=== PATIENT | female | born 1980 | race Caucasian/White ===

== ENCOUNTER 2017-11-10 09:15 | Observation (INO) | payer OTHER, SELFPAY ==
[2017-11-10] VITALS (7 sets, daily range): BP systolic 111–132; BP diastolic 65–81; PULSE 62–65; RESP 12–21; TEMP 36.4–36.8; O2SAT 96–100; BMI 40.2
--- NOTE | 2017-11-10 07:32 | PC.NURSE ---
recieved from [place] from [place], pt seen 530am, c/o right upper abdominal pain, radiating back with nausea, no fever or vomiting. glucose 83. bm last night treated with 30mg toradol im, 4mg zofran sl, fentanyl 50mcg [place]. spouse driving pt to er on [address]. pt with family hx lupus, (mother and sister) pt has been having joint pain and rash on face. pt no meds , no allergies. 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
--- NOTE | 2017-11-10 10:18 | ED.ABDPAIN ---
HPI - Abdominal Pain General Chief Complaint: Abdominal Pain Stated Complaint: stomach pain for 1 week Time Seen by Provider: 11/10/17 09:45 Source: patient Mode of arrival: ambulatory Limitations: no limitations History of Present Illness HPI narrative: The patient is a 37-year-old female who presents with right upper quadrant pain for the last 5 days. Initially was quite bad 5 days ago he said that it got little bit better but never went away. And radiates to her back. It is worse every time she eats she feels nauseous at times but no vomiting no fever. complaint: abdominal pain Onset (ago): day(s) (5) Pain Consistency: constant Relieving factors: nothing Exacerbating factors: eating Related Data Home Medications Medication Instructions Recorded Confirmed Papaya Enzyme 1 dose PO DIRECTED 11/10/17 11/10/17 Allergies Allergy/AdvReac Type Severity Reaction Status Date / Time No Known Drug Allergies Allergy Verified 11/10/17 09:41 Review of Systems Review of Systems GENERAL: Denies chills, fatigue, malaise, fever, sweats, travel HEENT: Denies sinus pain, ear pain, sore throat, difficulty swallowing, neck pain RESPIRATORY: Denies dyspnea, cough, wheezing, hemoptysis, sputum. CARDIOVASCULAR: Denies chest pain, palpitations, orthopnea, edema GASTROINTESTINAL: See HPI : Denies dysuria, frequency, incontinence, hematuria, urinary retention, flank pain. MUSCULOSKELETAL: Denies weakness, joint pain, or bony pain SKIN: No rash, no erythema, no pruritus NEUROLOGIC: Denies weakness, dizziness, headache, numbness, change in speech, confusion PSYCHIATRIC: No concerning psychosocial issues. 12 point review of systems is negative except for those stated above and HPI [facility] Surgical History Status post arthroscopy Status post delivery Status post delivery Status post delivery Status post delivery Status post dilation and curettage Status post tubal ligation Family History: Reviewed 11/10/17 by Ansley Gayle MD Social History household members: spouse and children Smoking Status: Never smoker alcohol intake: never substance use type: does not use Exam Initial Vital Signs Initial Vital Signs: Vital Signs Temperature 97.6 F 11/10/17 09:35 Pulse Rate 65 11/10/17 09:35 Respiratory Rate 18 11/10/17 09:35 Blood Pressure 125/79 H 11/10/17 09:35 Pulse Oximetry 100 11/10/17 09:35 GENERAL: Well-appearing, well-nourished and in no acute distress. HEENT: Head atraumatic,EOMI, pupils reactive, face symmetric CARDIOVASCULAR: Regular rate and rhythm without murmurs, rubs or gallops. RESPIRATORY: Breath sounds equal bilaterally, no wheezes rales or rhonchi. ABDOMEN: Soft, obese, positive Ness sign, tender right upper quadrant no guarding no rebound s EXTREMITIES: Normal range of motion, no clubbing or edema. Neurovascularly intact NEUROLOGICAL: Alert and oriented x4.Normal gait and speech. SKIN: Warm, dry, no laceration, no petechiae, no rashes or lesions. Course Orders Ordered: ED Orders 11/10/17 10:25 US abdomen complete Stat 11/10/17 10:33 Complete Blood Count AUTO DIFF Stat Comprehensive Metabolic Panel Stat Lipase Stat 11/10/17 16:01 Education, smoking cessation ONGOING Hydromorphone HCl (Dilaudid) 1 mg IV Q1H PRN PRN Reason: Pain, Moderate (4-6) Last Admin: 11/10/17 18:36 Dose: 1 mg Dextrose/Sodium Chloride (Dextrose 5%-0.45% Ns) 1,000 mls @ 100 mls/hr IV CONT LUIZ Last Admin: 11/10/17 16:16 Dose: 100 mls/hr Cefotetan Disodium/Dextrose (Cefotan) 2 gm in 50 mls @ 100 mls/hr IV Q12H [facility] Last Admin: 11/10/17 17:02 Dose: 100 mls/hr Ondansetron HCl (Zofran) 4 mg IV Q6HR [facility] Last Admin: 11/10/17 18:23 Dose: Not Given Discontinued Medications Sodium Chloride (Normal Saline 0.9%) 1,000 mls @ 150 mls/hr IV CONT LUIZ Last Admin: 11/10/17 10:55 Dose: 150 mls/hr Reevaluation(s) Reevaluation #1: Dr. Gayle in the ED to see and evaluate patient. Patient will be placed in observation with surgery tomorrow Dr. Gayle home on to write orders. Vital Signs - 8 hr 11/10/17 11:58 11/10/17 13:34 11/10/17 16:00 Temperature 98.2 F Pulse Rate 65 62 62 Respiratory Rate 21 12 16 Blood Pressure 132/81 H Blood Pressure [Right Arm] 112/69 111/65 Pulse Oximetry 100 100 97 11/10/17 17:00 Temperature Pulse Rate Respiratory Rate Blood Pressure Blood Pressure [Right Arm] Pulse Oximetry 97 MDM - Abdominal Pain Lab Data Result diagrams: 11/10/17 10:33 11/10/17 10:33 Lab Results 11/10/17 11/10/17 Range/Units 10:33 10:33 WBC 4.9 (4.5-11.0) X10^3/uL RBC 4.52 (4.0-5.2) X10^6/uL Hgb 12.1 (12.0-16.0) g/dL Hct 36.0 (36-46) % MCV 79.7 L (80-100) fL MCH 26.8 (26-34) PG MCHC 33.6 (30-36) % RDW 14.3 (11.6-14.8) % Plt Count 246 (150-400) X10^3/uL Neut % (Auto) 57.8 (50-75) % Lymph % (Auto) 33.8 (25-40) % [place] % (Auto) 6.3 (3-14) % Eos % (Auto) 1.5 L (2-4) % Baso % (Auto) 0.6 (0-2) % Neut # (Auto) 2800 L (4531-0270) /uL Sodium 140 (137-145) mmol/L Potassium 4.2 (3.4-5.1) mmol/L Chloride 103 (98-107) mmol/L Carbon Dioxide 28 (22-32) mmol/L BUN 16 (7-17) mg/dL Creatinine 0.70 (0.52-1.04) mg/dL Estimated GFR > 60.0 (>60) mL/min BUN/Creatinine Ratio 22.9 H (6-22) Glucose 85 (70-100) mg/dL Calcium 9.0 (8.4-10.2) mg/dL Total Bilirubin 0.5 (0.2-1.3) mg/dL AST 28 (14-36) IU/L ALT 30 (9-52) IU/L Alkaline Phosphatase 76 (38-126) U/L Total Protein 7.0 (6.3-8.2) g/dL Albumin 4.0 (3.5-5.0) g/dL Globulin 3.0 (1.7-4.1) g/dL Albumin/Globulin Ratio 1.3 (1.0-2.8) Lipase 57 (23-300) U/L Point of care testing: Point of Care Testing Test Results Negative Urine Dip Bedside Urine Glucose Negative Bedside Urine Bilirubin - Negative Bedside Urine Ketone - Negative Urine Specific [place] 1.025 Bedside Urine Occult Blood - Negative Bedside Urine pH 6.0 Bedside Urine Protein +/- 15 Bedside Urine Urobilinogen +/- 1mg Bedside Urine Nitrite - Negative Bedside Urine Leukocytes - Negative Esterase Imaging Data US - abdomen: Radiologist's impression: PROCEDURE: US ABDOMEN COMPLETE INDICATIONS: RIGHT UPPER QUADRANT PAIN TECHNIQUE: Real-time scanning was performed of the abdominal and retroperitoneal organs, with image documentation. COMPARISON: None. FINDINGS: Liver: Liver is normal in size and homogeneous in echotexture. Gallbladder: The gallbladder contains sludge and stones, gallbladder wall is not abnormally thickened and there is no sign of abnormal pericholecystic fluid or tenderness. A 1.4 cm none appears impacted at the gallbladder neck. Biliary ducts: Intrahepatic bile ducts are non-dilated. Extrahepatic bile duct caliber measures 6.1 mm. Normal is 6-7 mm or less in diameter, or 10 mm or less post-cholecystectomy. Pancreas: Visualized portions of the pancreas are sonographically normal. Spleen: Spleen is normal in size and homogeneous in echotexture. Kidneys: Kidneys are normal in size and echotexture. Right kidney measures 10.5 cm long; left kidney measures 11.8 cm long. No hydronephrosis or nephrolithiasis. No solid masses. Aorta: Visualized aorta is normal in caliber at less than 3 cm. Iliacs: Proximal common iliac arteries are normal in caliber at less than 2.5 cm. IVC: Intrahepatic inferior vena cava is patent. Miscellaneous: No free abdominal fluid. IMPRESSION: Gallstone impacted at the gallbladder neck measuring 1.4 cm. Currently there also is sludge within the gallbladder lumen but no biliary distention or gallbladder wall thickening is associated. Dictated by: Ryan Sainz M.D. on 11/10/2017 at 11:45 Discharge Plan Departure Patient Disposition: Admitted as Observation Clinical Impression: Cholelithiasis Discharge Date/Time: 11/10/17 16:06 Interventions: ED Discharge Assessment Last Done: 11/10/17 15:46 Admit Date/Time: 11/10/17 15:40 Admit Provider: Ansley Gayle
--- NOTE | 2017-11-10 10:25 | DI.US.S_ITS ---
PROCEDURE: US ABDOMEN COMPLETE INDICATIONS: RIGHT UPPER QUADRANT PAIN TECHNIQUE: Real-time scanning was performed of the abdominal and retroperitoneal organs, with image documentation. COMPARISON: None. FINDINGS: Liver: Liver is normal in size and homogeneous in echotexture. Gallbladder: The gallbladder contains sludge and stones, gallbladder wall is not abnormally thickened and there is no sign of abnormal pericholecystic fluid or tenderness. A 1.4 cm none appears impacted at the gallbladder neck. Biliary ducts: Intrahepatic bile ducts are non-dilated. Extrahepatic bile duct caliber measures 6.1 mm. Normal is 6-7 mm or less in diameter, or 10 mm or less post-cholecystectomy. Pancreas: Visualized portions of the pancreas are sonographically normal. Spleen: Spleen is normal in size and homogeneous in echotexture. Kidneys: Kidneys are normal in size and echotexture. Right kidney measures 10.5 cm long; left kidney measures 11.8 cm long. No hydronephrosis or nephrolithiasis. No solid masses. Aorta: Visualized aorta is normal in caliber at less than 3 cm. Iliacs: Proximal common iliac arteries are normal in caliber at less than 2.5 cm. IVC: Intrahepatic inferior vena cava is patent. Miscellaneous: No free abdominal fluid. IMPRESSION: Gallstone impacted at the gallbladder neck measuring 1.4 cm. Currently there also is sludge within the gallbladder lumen but no biliary distention or gallbladder wall thickening is associated. Dictated by: Ryan Sainz M.D. on 11/10/2017 at 11:45 Approved by: Ryan Sainz M.D. on 11/10/2017 at 11:47
--- NOTE | 2017-11-10 10:44 | PC.NURSE ---
pt reports, right upper abdominal pain, worsening pain today, radiating to the back, with nausea, denies vomiting and diarrhea, sxs for 5 days, worsen when she lays down and after eating. last solid meal last night at 8pm, [place] denies fever. abd soft tender with palpation right upper, +bowel tones, skin warm dry pink, cap refill <2
[2017-11-10 10:48] LABS: Add Manual Diff / Slide Review NO; Basophils Percent Auto 0.6 % (0-2); Eosinophils Percent Auto 1.5 % (2-4); Hemoglobin 12.1 g/dL (12.0-16.0); Lymphocytes Percent Auto 33.8 % (25-40); Mean Corpuscular HGB Conc 33.6 % (30-36); Mean Corpuscular Hemoglobin 26.8 PG (26-34); Mean Corpuscular Volume 79.7 fL (80-100); Monocytes Percent Auto 6.3 % (3-14); Neutrophils Absolute Auto 2800 /uL (3000-5900); Neutrophils Percent Auto 57.8 % (50-75); Platelet Count 246 X10^3/uL (150-400); Red Blood Cell Count 4.52 X10^6/uL (4.0-5.2); Red Cell Distribution Width 14.3 % (11.6-14.8); White Blood Cell Count 4.9 X10^3/uL (4.5-11.0)
[2017-11-10] MEDS: SODIUM CHLORIDE 0.9% 1,000 ML 150 ML IV (10:55)
[2017-11-10 10:58] LABS: Alanine Aminotransferase 30 IU/L (9-52); Albumin Globulin Ratio 1.3 (1.0-2.8); Alkaline Phosphatase 76 U/L (38-126); Aspartate Aminotransferase 28 IU/L (14-36); BUN Creatinine Ratio 22.9 (6-22); Bilirubin Total 0.5 mg/dL (0.2-1.3); Blood Urea Nitrogen 16 mg/dL (7-17); Carbon Dioxide 28 mmol/L (22-32); Chloride 103 mmol/L (98-107); Estimated Glomerular Filt Rate > 60.0 mL/min (>60); Glucose 85 mg/dL (70-100); HEMOLYSIS < 15 (0-50); Lipase 57 U/L (23-300); Potassium 4.2 mmol/L (3.4-5.1); Sodium 140 mmol/L (137-145)
--- NOTE | 2017-11-10 11:51 | PC.NURSE ---
ultra sound done at
--- NOTE | 2017-11-10 15:07 | PM.HP.1 ---
History of Present Illness Date Patient Seen: 11/10/17 Time Patient Seen: 15:07 Chief complaint: stomach pain for 1 week Narrative: Pleasant 37-year-old lady who has had intermittent but worsening right upper quadrant pain for the last 5 days. She reports the pain became acutely worse about 2:00 a.m. and she has not slept since that time. This prompted a trip to our emergency room from her home on [facility]. In the emergency room she was seen by Dr. Rodriguez and found to have a gallstone impacted in the neck of the gallbladder. I have been consulted for definitive management. Patient History Surgical History Status post arthroscopy Status post delivery Status post delivery Status post delivery Status post delivery Status post dilation and curettage Status post tubal ligation Family & Social History Family History: Reviewed 11/10/17 by Ansley Gayle MD Safety & Behavioral: Feels Safe in Current Yes Environment Been Physically Hurt or No Threatened By a Person Tobacco & Substance use: Smoking Status Never smoker alcohol intake never alcohol intake frequency 0-2 drinks per day Substance Use Type does not use Meds Home Medications Medication Instructions Recorded Confirmed Type Papaya Enzyme 1 dose PO DIRECTED 11/10/17 11/10/17 History Allergies Allergy/AdvReac Type Severity Reaction Status Date / Time No Known Drug Allergies Allergy Verified 11/10/17 09:41 Review of Systems Review of Systems All systems reviewed & are unremarkable except as noted in HPI and below Exam Vital Signs (past 8 hours): - 11/10/17 09:35 11/10/17 11:58 11/10/17 13:34 Temperature 97.6 F Pulse Rate 65 65 62 Respiratory Rate 18 21 12 Blood Pressure 125/79 H Blood Pressure [Right Arm] 112/69 111/65 Pulse Oximetry 100 100 100 Oxygen Delivery Method Room Air Narrative Exam Narrative: Pleasant but tired appearing lady in no obvious physical distress HEENT: Normocephalic and atraumatic, pupils equal round reactive to light accommodation with anicteric sclera. Lungs: Clear to auscultation bilaterally Heart: Regular rate and rhythm Abdomen: Soft, rotund, active bowel sounds. Healed Pfannenstiel incision consistent with previous history of multiple C-sections. No upper abdominal incisions. No umbilical or inguinal hernias appreciated. No rebound or guarding and no peritoneal signs. Extremities: Warm and well perfused without edema Objective Labs Result Diagrams: 11/10/17 10:33 11/10/17 10:33 Labs: Laboratory Results - last 24 hr 11/10/17 11/10/17 10:33 10:33 WBC 4.9 RBC 4.52 Hgb 12.1 Hct 36.0 MCV 79.7 L MCH 26.8 MCHC 33.6 RDW 14.3 Plt Count 246 Neut % (Auto) 57.8 Lymph % (Auto) 33.8 [place] % (Auto) 6.3 Eos % (Auto) 1.5 L Baso % (Auto) 0.6 Neut # (Auto) 2800 L Sodium 140 Potassium 4.2 Chloride 103 Carbon Dioxide 28 BUN 16 Creatinine 0.70 Estimated GFR > 60.0 BUN/Creatinine Ratio 22.9 H Glucose 85 Calcium 9.0 Total Bilirubin 0.5 AST 28 ALT 30 Alkaline Phosphatase 76 Total Protein 7.0 Albumin 4.0 Globulin 3.0 Albumin/Globulin Ratio 1.[address] [place] [address] Ultrasound Report Signed Patient: Gricel Brito MR#: [id number] : 1980 Acct:[id number] Age/Sex: 37 / F Date of Service: 11/10/17 Loc: ED Accession Number: [id number] Procedure: US abdomen complete Ordering Provider: Natty Rodriguez D.O. PROCEDURE: US ABDOMEN COMPLETE INDICATIONS: RIGHT UPPER QUADRANT PAIN TECHNIQUE: Real-time scanning was performed of the abdominal and retroperitoneal organs, with image documentation. COMPARISON: None. FINDINGS: Liver: Liver is normal in size and homogeneous in echotexture. Gallbladder: The gallbladder contains sludge and stones, gallbladder wall is not abnormally thickened and there is no sign of abnormal pericholecystic fluid or tenderness. A 1.4 cm none appears impacted at the gallbladder neck. Biliary ducts: Intrahepatic bile ducts are non-dilated. Extrahepatic bile duct caliber measures 6.1 mm. Normal is 6-7 mm or less in diameter, or 10 mm or less post-cholecystectomy. Pancreas: Visualized portions of the pancreas are sonographically normal. Spleen: Spleen is normal in size and homogeneous in echotexture. Kidneys: Kidneys are normal in size and echotexture. Right kidney measures 10.5 cm long; left kidney measures 11.8 cm long. No hydronephrosis or nephrolithiasis. No solid masses. Aorta: Visualized aorta is normal in caliber at less than 3 cm. Iliacs: Proximal common iliac arteries are normal in caliber at less than 2.5 cm. IVC: Intrahepatic inferior vena cava is patent. Miscellaneous: No free abdominal fluid. IMPRESSION: Gallstone impacted at the gallbladder neck measuring 1.4 cm. Currently there also is sludge within the gallbladder lumen but no biliary distention or gallbladder wall thickening is associated. Dictated by: Ryan Sainz M.D. on 11/10/2017 at 11:45 Approved by: Ryan Sainz M.D. on 11/10/2017 at 11:47 Assessment & Plan Plan: Assessment/Plan Narrative: Very pleasant 37-year-old lady with acute biliary colic related to cholelithiasis and chronic cholecystitis. She will be admitted overnight here in the hospital with planned surgical intervention tomorrow morning at 10:45 a.m.. We discussed the risks and benefits of the procedure and after careful consideration, the patient expressed a desire to complete the procedure while here in the hospital.
--- NOTE | 2017-11-10 15:11 | P.HP_ITS ---
History of Present Illness Date Patient Seen: 11/10/17 Time Patient Seen: 15:07 Chief complaint: stomach pain for 1 week Narrative: Pleasant 37-year-old lady who has had intermittent but worsening right upper quadrant pain for the last 5 days. She reports the pain became acutely worse about 2:00 a.m. and she has not slept since that time. This prompted a trip to our emergency room from her home on [facility]. In the emergency room she was seen by Dr. Rodriguez and found to have a gallstone impacted in the neck of the gallbladder. I have been consulted for definitive management. Patient History Surgical History Status post arthroscopy Status post delivery Status post delivery Status post delivery Status post delivery Status post dilation and curettage Status post tubal ligation Family & Social History Family History: Reviewed 11/10/17 by Ansley Gayle MD Safety & Behavioral: Feels Safe in Current Yes Environment Been Physically Hurt or No Threatened By a Person Tobacco & Substance use: Smoking Status Never smoker alcohol intake never alcohol intake frequency 0-2 drinks per day Substance Use Type does not use Meds Home Medications Medication Instructions Recorded Confirmed Type Papaya Enzyme 1 dose PO DIRECTED 11/10/17 11/10/17 History Allergies Allergy/AdvReac Type Severity Reaction Status Date / Time No Known Drug Allergies Allergy Verified 11/10/17 09:41 Review of Systems Review of Systems All systems reviewed & are unremarkable except as noted in HPI and below Exam Vital Signs (past 8 hours): - 11/10/17 09:35 11/10/17 11:58 11/10/17 13:34 Temperature 97.6 F Pulse Rate 65 65 62 Respiratory Rate 18 21 12 Blood Pressure 125/79 H Blood Pressure [Right Arm] 112/69 111/65 Pulse Oximetry 100 100 100 Oxygen Delivery Method Room Air Narrative Exam Narrative: Pleasant but tired appearing lady in no obvious physical distress HEENT: Normocephalic and atraumatic, pupils equal round reactive to light accommodation with anicteric sclera. Lungs: Clear to auscultation bilaterally Heart: Regular rate and rhythm Abdomen: Soft, rotund, active bowel sounds. Healed Pfannenstiel incision consistent with previous history of multiple C-sections. No upper abdominal incisions. No umbilical or inguinal hernias appreciated. No rebound or guarding and no peritoneal signs. Extremities: Warm and well perfused without edema Objective Labs Result Diagrams: 11/10/17 10:33 11/10/17 10:33 Labs: Laboratory Results - last 24 hr 11/10/17 11/10/17 10:33 10:33 WBC 4.9 RBC 4.52 Hgb 12.1 Hct 36.0 MCV 79.7 L MCH 26.8 MCHC 33.6 RDW 14.3 Plt Count 246 Neut % (Auto) 57.8 Lymph % (Auto) 33.8 [place] % (Auto) 6.3 Eos % (Auto) 1.5 L Baso % (Auto) 0.6 Neut # (Auto) 2800 L Sodium 140 Potassium 4.2 Chloride 103 Carbon Dioxide 28 BUN 16 Creatinine 0.70 Estimated GFR > 60.0 BUN/Creatinine Ratio 22.9 H Glucose 85 Calcium 9.0 Total Bilirubin 0.5 AST 28 ALT 30 Alkaline Phosphatase 76 Total Protein 7.0 Albumin 4.0 Globulin 3.0 Albumin/Globulin Ratio 1.[address] [place] [address] Ultrasound Report Signed Patient: Gricel Brito MR#: [id number] : 1980 Acct:[id number] Age/Sex: 37 / F Date of Service: 11/10/17 Loc: ED Accession Number: [id number] Procedure: US abdomen complete Ordering Provider: Natty Rodriguez D.O. PROCEDURE: US ABDOMEN COMPLETE INDICATIONS: RIGHT UPPER QUADRANT PAIN TECHNIQUE: Real-time scanning was performed of the abdominal and retroperitoneal organs, with image documentation. COMPARISON: None. FINDINGS: Liver: Liver is normal in size and homogeneous in echotexture. Gallbladder: The gallbladder contains sludge and stones, gallbladder wall is not abnormally thickened and there is no sign of abnormal pericholecystic fluid or tenderness. A 1.4 cm none appears impacted at the gallbladder neck. Biliary ducts: Intrahepatic bile ducts are non-dilated. Extrahepatic bile duct caliber measures 6.1 mm. Normal is 6-7 mm or less in diameter, or 10 mm or less post-cholecystectomy. Pancreas: Visualized portions of the pancreas are sonographically normal. Spleen: Spleen is normal in size and homogeneous in echotexture. Kidneys: Kidneys are normal in size and echotexture. Right kidney measures 10.5 cm long; left kidney measures 11.8 cm long. No hydronephrosis or nephrolithiasis. No solid masses. Aorta: Visualized aorta is normal in caliber at less than 3 cm. Iliacs: Proximal common iliac arteries are normal in caliber at less than 2.5 cm. IVC: Intrahepatic inferior vena cava is patent. Miscellaneous: No free abdominal fluid. IMPRESSION: Gallstone impacted at the gallbladder neck measuring 1.4 cm. Currently there also is sludge within the gallbladder lumen but no biliary distention or gallbladder wall thickening is associated. Dictated by: Ryan Sainz M.D. on 11/10/2017 at 11:45 Approved by: Ryan Sainz M.D. on 11/10/2017 at 11:47 Assessment & Plan Plan: Assessment/Plan Narrative: Very pleasant 37-year-old lady with acute biliary colic related to cholelithiasis and chronic cholecystitis. She will be admitted overnight here in the hospital with planned surgical intervention tomorrow morning at 10:45 a.m.. We discussed the risks and benefits of the procedure and after careful consideration, the patient expressed a desire to complete the procedure while here in the hospital.
--- NOTE | 2017-11-10 15:47 | PC.NURSE ---
report given to mariah antunez to floor.
[2017-11-10] MEDS: DEXTROSE 5%-0.45% NS 1,000 ML 100 ML IV (16:16)
[2017-11-10] MEDS: CEFOTETAN 2 GM/50 ML PIGGYBACK IV (17:02)
[2017-11-10] MEDS: HYDROMORPHONE 0.5 MG INJ 1 MG IV (18:36)
[2017-11-10] MEDS: ONDANSETRON 4 MG/2 ML INJ IV ×2 (19:14→23:42)
[2017-11-10] MEDS: diphenhydrAMINE 50 MG/ML VIAL 25 MG IV (19:23)
--- NOTE | 2017-11-10 19:26 | PC.NURSE ---
Addendum entered by Jovon Lai R.N. 11/10/17 20:31: Call to Dr. Gayle for new orders for pain tx, also informed that patient did receive Toradol by the EMS team that cared for her prior to hospital arrival. New orders for IV Morphine and PO Tylenol, see JUL for details. Patient states her funny feeling has resided slightly but still feels nauseated and pain doesn't feel like it was resolved much. Explained new orders sugg. trying APAP per JUL orders but patient declined and wishes to rest instead. Original Note: Addendum entered by Jovon Lai R.N. 11/10/17 19:27: Patient reports itching post IV push of Dilaudid 1mg. Call placed to Dr. Gayle regarding reaction, VTO for Benedryl 25mg IV Q6HR PRN for itching. IV push given along w/ zofran as patient reports nausea post Pain hospitalist medical director. Patient now resting in bed w/ cool wash rag on forehead, denies any relief at this time, will cont. to reassess for relief. Original Note: Patient is A&O x3, pleasant adn coioperative w/ staff and is able to make needs known when nec. Katarina arrived to floor around 1615, w/ spouse in tow. Patient was transported via and was able to ambulated on own w/ out difficulty to chair. Patient denies any pain or n/v upon arrival to floor. VSS 97% on RA. IV fluids initated per JUL orders.
[2017-11-11] VITALS (25 sets, daily range): BP systolic 104–166; BP diastolic 59–104; PULSE 60–92; RESP 11–21; TEMP 36.2–37.4; O2SAT 94–100; BMI 43.7
--- NOTE | 2017-11-11 | PATH_ITS ---
[facility] Accession Number: [id number] . 01 Material submitted: . GALLBLADDER . 02 Diagnosis: Gallbladder, Laparoscopic Cholecystectomy: Chronic cholecystitis, cholesterolosis, and cholelithiasis. Small portion of benign subcapsular liver is attached. MRV/11/14/2017 . 02 Electronically signed: . Jannette Brand MD, Pathologist NPI- [id number] . 01 Gross description: . One specimen is received in formalin, labeled Daryl, Gricel and gallbladder, and consists of one gallbladder, 7 cm in length and 3 cm in diameter. The serosa is regalado-newby and focally hemorrhagic. There are multiple defects ranging up to 0.5 cm. The cystic duct is received ligated with a metal surgical clip. The duct is patent and 0.2 cm in diameter. The lumen is remarkable for green-yellow viscous bile and three yellow-regalado bosselated choleliths ranging up to 1.6 cm in greatest dimension. The mucosa is regalado-green and velvety. The wall thickness ranges 0.1-0.3 cm. There is a 0.4 cm portion of attached regalado tissue on the cauterized surface that is consistent with a portion of liver. Plaster Tender sections of the gallbladder are submitted in cassette A1 with the portion of possible liver bisected and submitted entirely in cassette A2. (PRATEEK:[id number]) /FRR . 02 Pathologist provided ICD-10: K81.1 . 02 CPT . 172623 Performed at: 01 [facility] [address] [facility], [place], [place] [id number] MD Lan Bueno MD Phone: [phone] Performed at: 02 [facility] [place] [address] [place] [id number] MD Kelby Toribio MD Phone: [phone]
[2017-11-11] MEDS: DEXTROSE 5%-0.45% NS 1,000 ML 100 ML IV (03:11)
[2017-11-11] MEDS: CEFOTETAN 2 GM/50 ML PIGGYBACK IV (05:23)
[2017-11-11] MEDS: LACTATED RINGERS 1,000 ML 42 ML IV (10:49)
--- NOTE | 2017-11-11 12:19 | SUR.OPER ---
Supine on padded OR bed, head on pillow, arm padded and tucked at side, legs uncrossed, safety belt at thigh, tape over blanket over lower legs .
[2017-11-11] MEDS: BUPIVACAINE 0.5% (PF) 30 ML VIAL INJ (12:34)
--- NOTE | 2017-11-11 12:41 | PM.OP.1 ---
Operative Date/Time/Diagnoses Date of procedure: 11/11/17 Time of procedure: 12:41 Pre-op diagnosis: Cholelithiasis and acute cholecystitis Post-op diagnosis: same Procedure & Clinicians Procedure: Laparoscopic cholecystectomy Same procedure as scheduled: Yes Indications: Symptomatic cholelithiasis cholecystitis Surgeon: Ansley Gayle Anesthesia Type: General (Kotlarczyk) and Local Operative Notes Findings: 1. Thin walled gallbladder with adhesions to the colon and surrounding structures 2. Multiple gallstones within the lumen of the gallbladder 3. Relative hypervascularization at the gallbladder fossa Closure Type: primary Specimen(s): other (Gallbladder in formalin) Estimated Blood Loss (mL): 20 Procedure in detail: After obtaining informed consent, the patient was brought to the operating room and placed in the supine position on the operating table. Following successful induction of general endotracheal anesthesia, appropriate padding of all bony prominences, and placement of appropriate monitors, the abdomen was prepped and draped in a standard surgical fashion. A timeout was held per SCOAP protocol. Following infiltration with local anesthetic to create a field block, an incision was created superior to the umbilicus and carried down through the skin and subcutaneous tissue to reveal the fascia below. 2-0 Vicryl retention sutures are placed on either side of the midline and the abdomen was entered under direct vision using a 15 blade scalpel. A 10 mm blunt trocar was placed in the abdominal cavity and it was insufflated to 15 mm of Hg pressure. The patient was placed in reverse Trendelenburg position with the left side rotated toward the floor. A second 5 mm trocar was placed in the midepigastrium and 2 more in the right upper quadrant, again after infiltration with local anesthetic and under direct vision with the camera. The gallbladder was grasped in the fundus and elevated up over the liver. This revealed the cholecysto-hepatoduodenal ligament. The cystic duct and artery were carefully identified with gentle dissection. As we were able to clearly see the structures as well as the junction with the common duct; we elected not to perform a cholangiogram. 3 clips were placed proximally on the cystic duct and one distally. The duct was divided between these clips. 2 clips were placed proximally on the cystic artery and one distally. The artery was divided between these clips. The gallbladder was then liberated from its bed in the liver using Bovie cautery. It was placed in an Endoscopic bag and removed via the umbilical port. The camera was returned to the abdominal cavity and the operative site examined carefully. Hemostasis was obtained with cautery. The abdomen was irrigated copiously with warm saline solution and then aspirated free of all particulate matter and fluid. Trochars were then removed under direct vision and the abdomen desufflated by giving the patient a Valsalva maneuver. The umbilical incision was closed with interrupted Vicryl suture and Monocryl sutures were placed in the skin. The remaining skin incisions were closed with Monocryl suture. All sponge, needle, and instrument counts were correct at the conclusion of the case. The patient was allowed to awaken from anesthesia without difficulty and taken to the post anesthesia care unit in good condition. Complications: none Condition: stable Disposition: PACU Plan for aftercare: 1. Discharge to home 2. Follow up with me in 2 weeks
[2017-11-11] MEDS: fentaNYL 100 MCG/2 ML INJ 25 MCG IV ×2 (13:06→13:25)
[2017-11-11] MEDS: fentaNYL 100 MCG/2 ML INJ 50 MCG IV (13:12)
--- NOTE | 2017-11-11 13:20 | SUR.PHASEI ---
report attempted, rn at lunch, rn covering busy asked for me to call back in 10 minutes. medicated with fentanyl, pt with pain in abdomen and under r clavical. ice pack to abdomen, no nausea taking ice chips freely.
[2017-11-11] MEDS: LORazepam 2 MG/ML SYRINGE 0.5 MG IV ×2 (13:40→13:55)
--- NOTE | 2017-11-11 14:47 | SUR.PHASEI ---
late entry: pt kept in pacu due to pain under r shoulder blade. pain in abdomen 4 and tolerable, pain in r shoulder 5. treated with fentanyl and lorazepam. pt took ice chips and applesauce and tolerated well, on 02 then weaned off, then placed back on and weaned off for good. pt transported upstairs and left in stable condition. surgical sites to abdomen remained intact. multiple POC attempted, pt on back then l and r sides then on back again. pt's hob also lowered then raised up 30 degrees. ice pack to abdomen and r shoulder area. 2 prescriptions given to to fill.
--- NOTE | 2017-11-11 15:08 | CM.IDA ---
DCP Assessment Note: Pt is a 37 yo female, resident of [facility]. Pt under obs for a cholelithiasis w/ Dr Gayle. Pt's PCP is note listed, Insurance is [employer]. Pt in w/her today, awaiting surgery w/ Dr Gayle. Pt is indp at baseline, h/o multiple C Sections. Pt lives w/spouse and children on [facility]. Pt will DC back home w/family once cleared medically to leave ,post operatively. No DC needs anticipated. DIRK Discharge Planning/Care Management CM Discharge Assessment Start: 11/11/17 15:07 Freq: Status: Active Protocol: Document 11/11/17 15:07 DIRK (Rec: 11/11/17 15:08 DIRK [id number]) Discharge Planning Assessment Assigned Scrap Cutter DIRK History Provided By Patient Medical Record Has Patient been admitted in last 30 No days? Is this patient on Medicare? No Prior Living Arrangements House Household Members spouse children Type of transporation used prior to Drives own vehicle admit Independent with ADL's Yes Is patient alert and oriented? Yes Caregiver for Another Yes: Children Referrals Initiated None needed Discharge Plan Home Transportation Arrangement Family Review Status Complete
--- NOTE | 2017-11-11 15:25 | PC.NURSE ---
Patient left my care at 1030 and returned to the floor at 1445
[2017-11-11] MEDS: OXYCODONE/ACETAMINOPHEN 5/325 TABLET 1 TAB PO (16:44)
== END 2017-11-11 17:38 | disposition home or self-care (01) ==
LOC: ED 15:02 → AC 15:42
PROVIDERS: Admitting Provider Surgery; Emergency Provider Emergency Medicine; Visit Provider Surgery
PROC: 0FT44ZZ Resection of Gallbladder, Percutaneous Endoscopic Approach (ICD-10-PCS; CPT 47562; principal; 2017-11-11 10:45)
DX: K80.00 Calculus of gallbladder with acute cholecystitis without obstruction (principal); E66.01 Morbid (severe) obesity due to excess calories
CPT/HCPCS: 47562; 36591; 36592; 76700; 80053; 81003; 81025; 82962; 83690; 85025; 96361; 96374; 99220; 99283; 99285; G0378; J1100; J1170; J1200; J1885; J2060; J2250; J2405; J2704; J3010

== ENCOUNTER → 2020-09-01 11:38 | Outpatient (CLI) | payer OTHER, SELFPAY ==
[2017-11-11 13:25] VITALS: BMI 40.2
[2020-09-01 19:27] LABS: Add Manual Diff / Slide Review NO; Basophils Absolute Auto 0 /uL (0-100); Basophils Percent Auto 0.5 % (0-2); Eosinophils Absolute Auto 100 /uL (0-450); Eosinophils Percent Auto 2.3 % (2-4); Hematocrit 39.1 % (36-46); Hemoglobin 13.1 g/dL (12.0-16.0); Lymphocytes Absolute Auto 1300 /uL (1100-4500); Lymphocytes Percent Auto 26.2 % (25-40); Mean Corpuscular HGB Conc 33.4 % (30-36); Mean Corpuscular Hemoglobin 27.8 PG (26-34); Mean Corpuscular Volume 83.3 fL (80-100); Monocytes Absolute Auto 400 /uL (0-900); Monocytes Percent Auto 6.9 % (3-14); Neutrophils Absolute Auto 3300 /uL (1500-7000); Neutrophils Percent Auto 64.1 % (50-75); Platelet Count 268 X10^3/uL (150-400); Red Cell Distribution Width 13.2 % (11.6-14.8); White Blood Cell Count 5.1 X10^3/uL (4.5-11.0)
[2020-09-01 19:47] LABS: D Dimer < 200 ng/mL (<230)
[2020-09-01 19:59] LABS: Alanine Aminotransferase 59 IU/L (<35); Albumin 3.9 g/dL (3.5-5.0); Albumin Globulin Ratio 1.4 (1.0-2.8); Alkaline Phosphatase 109 U/L (38-126); Aspartate Aminotransferase 47 IU/L (14-36); BUN Creatinine Ratio 21.5 (6-22); Bilirubin Total 0.3 mg/dL (0.2-1.3); Blood Urea Nitrogen 14 mg/dL (7-17); Carbon Dioxide 24 mmol/L (22-32); Chloride 106 mmol/L (98-107); Estimated Glomerular Filt Rate > 60.0 mL/min (>60); Globulin 2.7 g/dL (1.7-4.1); Glucose 89 mg/dL (70-100); HEMOLYSIS < 15 (0-50); Sodium 138 mmol/L (137-145); Total Protein 6.6 g/dL (6.3-8.2)
[2020-09-01 20:25] LABS: TSH w/ Reflex to FT4 1.14 uIU/mL (0.47-4.68)
== END ==
PROVIDERS: PCP Family Medicine; Referring Provider Family Medicine; Visit Provider Family Medicine
DX: R07.9 Chest pain, unspecified (principal)
CPT/HCPCS: 80053; 84443; 85025; 85379

== ENCOUNTER → 2021-07-07 11:58 | Outpatient (CLI) | payer OTHER, SELFPAY ==
[2017-11-11 13:25] VITALS: BMI 40.2
[2021-07-07 20:36] LABS: Add Manual Diff / Slide Review NO; Basophils Absolute Auto 0 /uL (0-100); Basophils Percent Auto 0.7 % (0-2); Eosinophils Absolute Auto 100 /uL (0-450); Eosinophils Percent Auto 2.3 % (2-4); Hematocrit 39.9 % (36-46); Hemoglobin 13.3 g/dL (12.0-16.0); Lymphocytes Absolute Auto 1900 /uL (1100-4500); Lymphocytes Percent Auto 33.6 % (25-40); Mean Corpuscular HGB Conc 33.5 % (30-36); Mean Corpuscular Hemoglobin 27.7 PG (26-34); Mean Corpuscular Volume 82.9 fL (80-100); Monocytes Absolute Auto 300 /uL (0-900); Monocytes Percent Auto 6.2 % (3-14); Neutrophils Absolute Auto 3200 /uL (1500-7000); Neutrophils Percent Auto 57.2 % (50-75); Platelet Count 276 X10^3/uL (150-400); Red Blood Cell Count 4.81 X10^6/uL (4.0-5.2); Red Cell Distribution Width 13.5 % (11.6-14.8); White Blood Cell Count 5.5 X10^3/uL (4.5-11.0)
[2021-07-07 21:01] LABS: Free T4, Direct Thyroxine 1.06 ng/dL (0.78-2.19)
[2021-07-07 21:16] LABS: Thyroid Stimulating Hormone 1.08 uIU/mL (0.47-4.68)
== END ==
PROVIDERS: PCP Family Medicine; Visit Provider Obstetrics & Gynecology
DX: N93.9 Abnormal uterine and vaginal bleeding, unspecified (principal)
CPT/HCPCS: 84439; 84443; 85025

== ENCOUNTER → 2021-07-31 12:47 | Outpatient (CLI) | payer OTHER, SELFPAY ==
[2017-11-11 13:25] VITALS: BMI 40.2
--- NOTE | 2021-07-31 | DI.MG.S_ITS ---
BILATERAL DIGITAL SCREENING MAMMOGRAM 3D/2D WITH CAD: 07/31/2021 CLINICAL: Baseline exam Routine screening. No prior exams were available for comparison. The tissue of both breasts is predominantly fatty. Current study was also evaluated with a Computer Aided Detection (CAD) system. No significant masses, calcifications, or other findings are seen in either breast. IMPRESSION: NEGATIVE There is no mammographic evidence of malignancy. A 1 year screening mammogram is recommended. This exam was interpreted at Station ID: [id number]. NOTE: For mammograms, a report in lay terms will be sent to the patient. Approximately 15% of breast malignancies will not be visualized mammographically. In the management of a palpable breast mass, a negative mammogram must not discourage biopsy of a clinically suspicious lesion. Electronically Signed By: Lexie schaefer/ugo:07/31/2021 15:25:44 letter sent: Normal Exam ACR BI-RADS Category 1: Negative [id number]
== END ==
PROVIDERS: PCP Family Medicine; Referring Provider Obstetrics & Gynecology; Visit Provider Obstetrics & Gynecology
DX: Z12.31 Encounter for screening mammogram for malignant neoplasm of breast (principal)
CPT/HCPCS: 77063; 77067

== ENCOUNTER 2025-03-05 13:53 | Emergency (ER) | payer OTHER, SELFPAY ==
[2017-11-11 13:25] VITALS: BMI 40.2
[2025-03-05 14:14] VITALS: BP 127/74; PULSE 70; RESP 16; TEMP 36.9; O2SAT 100; BMI 40.2
[2025-03-05 14:39] LABS: Add Manual Diff / Slide Review NO; Hematocrit 43.3 % (36-46); Hemoglobin 14.8 g/dL (12.0-16.0); Lymphocytes Absolute Auto 1900 /uL (1100-4500); Mean Corpuscular HGB Conc 34.1 % (30-36); Mean Corpuscular Hemoglobin 28.4 PG (26-34); Mean Corpuscular Volume 83.1 fL (80-100); Platelet Count 309 X10^3/uL (150-400)
[2025-03-05 14:51] LABS: Alanine Aminotransferase 28 IU/L (<35); Albumin 4.8 g/dL (3.5-5.0); Albumin Globulin Ratio 1.5 (1.0-2.8); Alkaline Phosphatase 90 U/L (38-126); Blood Urea Nitrogen 12 mg/dL (7-17); Calcium 9.1 mg/dL (8.4-10.2); Carbon Dioxide 26 mmol/L (22-32); Chloride 106 mmol/L (98-107); Estimated Glomerular Filt Rate > 60 mL/min (>60); Globulin 3.2 g/dL (1.7-4.1); Glucose 82 mg/dL (70-99); HEMOLYSIS < 15 (0-50); Lipase 59 U/L (23-300); Potassium 3.6 mmol/L (3.4-5.1); Sodium 141 mmol/L (137-145); Total Protein 8.0 g/dL (6.3-8.2)
--- NOTE | 2025-03-05 15:14 | ED.ABDPAIN ---
HPI - Abdominal Pain General Chief Complaint: Abdominal Pain Stated Complaint: Lower left stomach pain Time Seen by Provider: 03/05/25 15:08 Source: patient Mode of arrival: Ambulatory History of Present Illness HPI narrative: 44-year-old female patient with a history of dysmenorrhea and anxiety/depression who presents with left lower abdominal pain that started this morning. She has had intermittent pain in that area for the last few months. Today the pain is constant and she has nausea when the pain increases. Surgical history includes x4, cholecystectomy and tubal ligation. Patient has been on hormone therapy since menarche because of painful periods and dysmenorrhea. She has had no dysuria, nausea, diarrhea, constipation, fever or chills. Her appetite has been normal. Related Data Previous Rx's ?Medication ?Instructions ?Recorded progesterone micronized 200 mg 200 mg PO DAILY #90 caps 06/19/21 capsule Allergies Allergy/AdvReac Type Severity Reaction Status Date / Time No Known Drug Allergies Allergy Verified 04/17/21 15:51 Review of Systems Review of Systems ROS Unobtainable: All systems reviewed & are unremarkable except as noted in HPI and below Gastrointestinal Gastrointestinal: Reports as per HPI Genitourinary Genitourinary: Reports as per HPI Patient History Medical History Anxiety Carpal tunnel syndrome Chicken pox Depression Heavy menstrual period Ovarian cyst Painful menstrual periods Shoulder pain Surgical History Anesthesia History of cholecystectomy (~2017) Status post arthroscopy (~1995) Status post delivery (~2003) Status post delivery (~2005) Status post delivery (~2008) Status post delivery (~2014) Status post dilation and curettage Status post tubal ligation Family History Father Age: 66 Heart disease High cholesterol Hypertension Mother Age: 64 Lupus Grandmother High cholesterol Hypertension Sister Lupus Sister Lupus Social History (System 11/10/17 @ 14:59 by Leda Little) household members: spouse and children Smoking Status: Never smoker alcohol intake: never substance use type: does not use Smoking Status: Never smoker alcohol intake frequency: 0-2 drinks per day Exam Narrative Exam Narrative: General: Alert and conversant. No distress. Appears well nourished and well hydrated Lungs: Clear to auscultation with good air movement. No wheezing, rales or rhonchi. No respiratory distress Cardiac: Regular rate and rhythm with no appreciable murmur or gallop Abdomen: Soft. [id number] left lower quadrant and left adnexal tenderness from the exterior exam. With no distention or masses. Normal bowel sounds. No rebound or guarding Musculoskeletal: Exam of the extremities, axial spine and ribcage reveals no deformity, bony tenderness or swelling. Range of motion intact Neuro: Alert and oriented. Cranial nerves, motor, sensory and cerebellar all grossly intact. No focal deficit Skin: Warm and normal color. No rashes Psychological: Normal affect and interaction. No evidence of delusion or psychosis. Normal mood. Initial Vital Signs Initial Vital Signs: Vital Signs Temperature 98.4 F 03/05/25 14:14 Pulse Rate 70 03/05/25 14:14 Respiratory Rate 16 03/05/25 14:14 Blood Pressure 127/74 03/05/25 14:14 Pulse Oximetry 100 03/05/25 14:14 Oxygen Delivery Method Room Air 03/05/25 14:14 Course Orders Ordered: ED Orders 03/05/25 17:42 US pelvic complete Stat 03/05/25 19:19 CT abdomen pelvis w con Stat Discontinued Medications Ondansetron HCl (Ondansetron 4 Mg/2 Ml Inj) 4 mg IV NOW PRN PRN Reason: Nausea And Vomiting Ondansetron HCl (Ondansetron 4 Mg Odt) 4 mg PO NOW PRN PRN Reason: Nausea And Vomiting Vital Signs Vital signs: Vital Signs - 8 hr 03/05/25 19:51 Pulse Rate 80 Respiratory Rate 15 Blood Pressure 156/92 H Pulse Oximetry 98 Oxygen Delivery Method Room Air MDM - Abdominal Pain Lab Data Attestation: I reviewed the patient's lab results. Lab results narrative: CBC and CMP unremarkable. 03/05/25 14:30 03/05/25 14:30 Labs: Lab Results 03/05/25 03/05/25 Range/Units 14:20 14:30 WBC 7.1 (4.5-11.0) X10^3/uL RBC 5.21 H (4.0-5.2) X10^6/uL Hgb 14.8 (12.0-16.0) g/dL Hct 43.3 (36-46) % MCV 83.1 (80-100) fL MCH 28.4 (26-34) PG MCHC 34.1 (30-36) % RDW 13.7 (11.6-14.8) % Plt Count 309 (150-400) X10^3/uL Neut % (Auto) 63.7 (50-75) % Lymph % (Auto) 26.5 (25-40) % Hamlin % (Auto) 7.6 (3-14) % Eos % (Auto) 1.3 L (2-4) % Baso % (Auto) 0.9 (0-2) % Neut # (Auto) 4500 (6446-4438) /uL Lymph # (Auto) 1900 (6101-4054) /uL Hamlin # (Auto) 500 (0-900) /uL Eos # (Auto) 100 (0-450) /uL Baso # (Auto) 100 (0-100) /uL Sodium 141 (137-145) mmol/L Potassium 3.6 (3.4-5.1) mmol/L Chloride 106 (98-107) mmol/L Carbon Dioxide 26 (22-32) mmol/L BUN 12 (7-17) mg/dL Creatinine 0.64 (0.52-1.04) mg/dL Estimated GFR > 60 (>60) mL/min BUN/Creatinine Ratio 18.8 (6-22) Glucose 82 (70-99) mg/dL Calcium 9.1 (8.4-10.2) mg/dL Total Bilirubin 0.5 (0.2-1.3) mg/dL AST 28 (14-36) IU/L ALT 28 (<35) IU/L Alkaline Phosphatase 90 (38-126) U/L Total Protein 8.0 (6.3-8.2) g/dL Albumin 4.8 (3.5-5.0) g/dL Globulin 3.2 (1.7-4.1) g/dL Albumin/Globulin Ratio 1.5 (1.0-2.8) Lipase 59 (23-300) U/L Urine Color Yellow Urine Appearance Clear Urine pH 7.0 (4.5-8.0) Ur Specific Lamar 1.020 (1.000-1.035) Urine Protein Negative (Negative) Urine Glucose (UA) Negative (Negative) g/dL Urine Ketones Trace H (NEGATIVE) Urine Occult Blood Negative (Negative) Urine Nitrate Negative (Negative) Urine Bilirubin Negative (NEGATIVE) Urine Urobilinogen 0.2 (0.2) E.U./dL Ur Leukocyte Esterase Negative (NEGATIVE) Urine RBC 0-1/hpf (0-5/HPF) Urine WBC 0-1/hpf (0-5/HPF) Ur Squamous Epith Cells 1-5 /hpf (0-5/HPF) Calcium Oxalate Crystal Occasional H Urine Bacteria Moderate (10-30) H (None) Urine Mucus 3+ H (Negative) Ur Culture Indicated? Cult not indicated Vol Urine Centrifuged Low vol <10ml (spun) A Urine Test Negative (Negative) Imaging Data US - CLINICAL OPERATIONS MANAGER: Radiologist's Impression: IMPRESSION: Nonvisualization of the left ovary with a large cystic structure seen in the right adnexa. The possibility of torsion can be better assessed on the subsequent CT examination. Small uterine fibroid. CT scan - abdomen/pelvis: Radiologist's Impression: IMPRESSION: CT abdomen and pelvis without acute abnormalities. Redemonstration of large cystic lesion within the right adnexa measuring up to 7.8 x 5.9 cm and axial cross-sectional dimension. No CT evidence to suggest torsion although it size clips at risk. Of note, no evidence for ovarian torsion on comparison pelvic ultrasound from earlier same day. Consider further characterization with pelvic MRI (gynecology protocol). Alternatively, follow-up pelvic ultrasound in 6-12 weeks can be considered to document stability versus resolution of this cyst. Other chronic/non-acute findings as above. MDM Narrative Medical decision making narrative: Left-sided lower quadrant or adnexal pain with no abnormal findings on that side of her pelvis on CT scan or ultrasound. She does have a large cystic mass/lesion near the right ovary measuring 7.8 x 5.9 cm. However she has a minimal symptoms in that area there is no evidence of torsion. Plan for her is follow up with primary care regarding the pelvic symptoms and right adnexal lesion/cystic complex. She may need repeat ultrasound or CT scan. Discharge Plan Departure Patient Disposition: Home Clinical Impression: Acute left lower quadrant pain, Pelvic mass Instructions: DI for Ovarian Cyst, DI for Pelvic Pain Activity Restrictions/Additional Instructions: Plan: Monitor symptoms and follow up with your primary care physician within a week to discuss ultrasound and CT findings of right ovarian cystic structure which is probably benign. Needs follow up imaging probably. Return to the ER if worse Prescriptions: No Action progesterone micronized 200 mg capsule 200 mg PO DAILY Qty: 90 3RF Referrals: Niels Salinas MD [Primary Care Provider, [facility]] Stand Alone Forms: Patient Portal/API
[2025-03-05 17:23] LABS: Appearance Urine UA CLEAR; Bilirubin Urine UA NEGATIVE (NEGATIVE); Color Urine UA YELLOW; Glucose Urine UA NEGATIVE (Negative); Ketones Urine UA TRACE (NEGATIVE); Leukocyte Esterase Urine UA NEGATIVE (NEGATIVE); Nitrite Urine UA NEGATIVE (Negative); Occult Blood Urine UA NEGATIVE (Negative); Protein Urine UA NEGATIVE (Negative); Specific Gravity Urine UA 1.020 (1.000-1.035); Urobilinogen Urine UA 0.2 E.U./dL (0.2); pH Urine UA 7.0 (4.5-8.0)
[2025-03-05 17:31] LABS: Culture Indicated Urine Cult Not Indicated
--- NOTE | 2025-03-05 17:42 | DI.US.S_ITS ---
PROCEDURE: US PELVIC COMPLETE INDICATIONS: Left Pelvic pain TECHNIQUE: Real-time scanning was performed of the pelvic organs, with image documentation. Additional endovaginal scanning was necessary due to incomplete visualization of the adnexal and endometrial structures by transabdominal scanning. COMPARISON: None. FINDINGS: Uterus: Uterus is anteverted and normal in size at 8 x 4.4 x 5.5 cm. The myometrium is homogeneous. The endometrium measures 10 mm combined thickness. There is a intramural fibroid on the left anteriorly measuring 1.7 x 1.6 cm. Ovaries: The left ovary was not seen. The right ovary measures 3.4 x 2.1 x 3.2 cm. There is a large simple cystic structure adjacent in the right ovary measuring 7.9 x 6.6 x 7.7 cm. Flow seen in the right ovarian parenchyma. Other: No pathologic free abdominal or pelvic fluid. IMPRESSION: Nonvisualization of the left ovary with a large cystic structure seen in the right adnexa. The possibility of torsion can be better assessed on the subsequent CT examination. Small uterine fibroid. We strive to produce accurate, complete, and clear reports of imaging services. To assist us in improving patient care, this report was composed using standard report templates and voice recognition software. Therefore, it may contain abnormal punctuation, insertions and/or omissions. Occasional wrong-word or sound-alike substitutions may occur. Though we review the report and make efforts to correct it, we do recommend that the report be read carefully in proper context to recognize any text inaccuracies. Dictated by: Claudy Sands M.D. on 03/05/2025 at 19:34 Approved by: Claudy Sands M.D. on 03/05/2025 at 19:37
--- NOTE | 2025-03-05 19:19 | DI.CT.S_ITS ---
PROCEDURE: CT ABDOMEN PELVIS W CON INDICATIONS: abdomen pain TECHNIQUE: After the administration of intravenous contrast, axial sections acquired from the lung bases to the pubic symphysis. Coronal and sagittal reformats were performed. For radiation dose reduction, the following was used: automated exposure control, adjustment of mA and/or kV according to patient size. COMPARISON: [facility], , US PELVIC COMPLETE, 03/05/2025, 18:30. FINDINGS: Image quality: Diagnostic. Lower Chest: No significant findings. ABDOMEN: Liver: No solid mass. Gallbladder: Surgically absent Biliary ducts: No biliary dilation. Pancreas: No ductal dilation. Spleen: Size is within normal limits. Adrenal Glands: No adrenal nodules. Kidneys and Ureters: No hydronephrosis. No solid mass. No complex renal cystic lesion which requires follow up. Stomach and Bowel: Normal colonic caliber, without significant wall thickening. No evidence for small bowel obstruction or associated inflammatory changes. The appendix is not definitively visualized. However, no secondary findings of acute inflammation are noted in the right lower quadrant. Peritoneum: No abnormal intraperitoneal fluid. No free air. Ventral Wall: There is a fat-containing umbilical hernia without acute inflammation. Abdominal Nodes: No retroperitoneal or mesenteric adenopathy by size criteria. Vessels: Aorta and inferior vena cava are normal in size. PELVIS: Pelvic Organs: As noted on comparison pelvic ultrasound, there is a large cystic structure within the right adnexa measuring approximately 7.8 x 5.9 cm in axial cross-sectional dimension (106/series 2). This measures simple fluid attenuation. There is no surrounding inflammatory changes to suggest torsion. There is vascular flow noted on comparison ultrasound. Reproductive organs are otherwise unremarkable as imaged. No pathologic pelvic free fluid visualized. Bladder: No bladder wall thickening, accounting for underdistention. Pelvic Nodes: No enlarged lymph nodes. Miscellaneous: No inguinal hernias are seen. Bones: No aggressive osseous abnormality. Visualized osseous structures appear intact without acute fracture or focal destructive lesion. No acute compression fractures of the imaged spine. IMPRESSION: CT abdomen and pelvis without acute abnormalities. Redemonstration of large cystic lesion within the right adnexa measuring up to 7.8 x 5.9 cm and axial cross-sectional dimension. No CT evidence to suggest torsion although it size clips at risk. Of note, no evidence for ovarian torsion on comparison pelvic ultrasound from earlier same day. Consider further characterization with pelvic MRI (gynecology protocol). Alternatively, follow-up pelvic ultrasound in 6-12 weeks can be considered to document stability versus resolution of this cyst. Other chronic/non-acute findings as above. Dictated by: Cornelio Alcaraz M.D. on 03/05/2025 at 19:47 Approved by: Cornelio Alcaraz M.D. on 03/05/2025 at 19:54
[2025-03-05 19:51] VITALS: BP 156/92; PULSE 80; RESP 15; O2SAT 98
== END 2025-03-05 20:00 | disposition home or self-care (01) ==
PROVIDERS: Emergency Medicine; Emergency Provider Emergency Medicine; PCP Family Medicine
DX: R10.32 Left lower quadrant pain (principal); R19.00 Intra-abdominal and pelvic swelling, mass and lump, unspecified site
CPT/HCPCS: 36415; 74177; 76830; 76856; 80053; 81001; 81025; 83690; 85025; 93976; 99283; 99284

== ENCOUNTER 2025-03-19 09:49 | Day surgery (SDC) | payer OTHER, SELFPAY ==
[2017-11-11 13:25] VITALS: BMI 40.2
--- NOTE | 2025-03-19 | PATH_ITS ---
[facility] Accession Number: [id number] No. of containers..03 Tissue . 01 Material submitted: . PART A: colon - CECAL POLYP PART B: stomach - ANTRUM PART C: duodenum - DUODENUM . 01 Diagnosis: Part A: CECAL POLYP: Colonic mucosa with benign lymphoid aggregate. No neoplasm identified. . Part B: ANTRUM: Gastric mucosa with moderate chronic inflammation. No Helicobacter organisms identified. No intestinal metaplasia, dysplasia, or malignancy identified. . Part C: DUODENUM: Duodenal mucosa with no diagnostic alterations. No active inflammation and no evidence of celiac disease. [facility] 03/28/20251753 Local . 01 Electronically signed: . Lan Bueno MD, Pathologist NPI- [id number] . 01 Gross description: . A. Received in formalin with two patient identifiers, and cecal polyp is one, 0.3 cm, regalado tissue fragment, entirely submitted in A1. . B. Received in formalin with two patient identifiers, and antrum is one 0.4 cm, regalado tissue fragment, entirely submitted in B1. . C. Received in formalin with two patient identifiers, and duodenum are two, 0.1-0.2 cm, regalado tissue fragments, entirely submitted in C1. ([id number]) /MRV 03/28/20251753 Local . 01 Microscopic: . Part B: ANTRUM: An immunohistochemical stain was performed to evaluate for Helicobacter organisms and is negative. The control stains appropriately. * This test was developed and the performance characteristics were validated by [employer]. It has not been cleared or approved by the Food and Drug Administration. . 01 Pathologist provided ICD-10: K29.50, K63.89 . 01 CPT . 536303, 498811, 100231, [id number] Specimen Comment: A courtesy copy of this report has been sent to [phone] Performed at: [address] [facility] [address], [place], [place] [id number] MD Lan Bueno MD Phone: [phone]
[2025-03-19] MEDS: LACTATED RINGERS 1,000 ML 42 ML IV (10:30)
[2025-03-19 11:00] VITALS: BP 132/88; PULSE 77; RESP 16; TEMP 36.4; O2SAT 97
--- NOTE | 2025-03-19 11:37 | P.HP_ITS ---
History of Present Illness History of Present Illness Date Patient Seen: 03/19/25 Time Patient Seen: 11:37 Chief complaint: Esophagogastroduodenoscopy/Colonoscopy Narrative: Gricel is a 44-year-old woman presents with primarily left lower abdominal pain over the past months. She was seen in the ER on [address] and ultrasound showed a large cystic mass involving the right ovary. She was referred to Dr. العراقي who felt she should have endoscopy first. [facility] Medical History (Updated 03/19/25 @ 11:40 by David Manzano MD) Depression Anxiety Shoulder pain Carpal tunnel syndrome Chicken pox Painful menstrual periods Ovarian cyst Heavy menstrual period Surgical History Anesthesia History of cholecystectomy (~2017) Status post arthroscopy (~1995) Status post tubal ligation Status post dilation and curettage Status post delivery (~2014) Status post delivery (~2008) Status post delivery (~2005) Status post delivery (~2003) Family History Father Age: 66 Heart disease High cholesterol Hypertension Mother Age: 64 Lupus Grandmother High cholesterol Hypertension Sister Lupus Sister Lupus Social History (System 11/10/17 @ 14:59 by Leda Little) household members: spouse and children Smoking Status: Never smoker alcohol intake: never substance use type: does not use Meds Home Medications and Allergies Home Medications ?Medication ?Instructions ?Recorded ?Confirmed ?Type progesterone micronized 200 mg 200 mg PO DAILY #90 cap s 06/19/21 03/12/25 Rx capsule Held on 03/14/25. Instructions: medication change norethindrone (contraceptive) 0.35 0.35 mg PO DAILY #8 4 tabs 03/14/25 03/14/25 Rx mg tablet (Casi) Allergies Allergy/AdvReac Type Severity Reaction Status Date / Time No Known Drug Allergies Allergy Verified 03/19/25 10:51 Exam Vital Signs (past 8 hours): - 03/19/25 11:00 Temperature 97.6 F Pulse Rate 77 Respiratory Rate 16 Blood Pressure 132/88 Pulse Oximetry 97 Oxygen Delivery Method Room Air Oxygen Delivery Method Room Air Const General: No acute distress Assessment & Plan Assessment and plan (1) Abdominal pain: Qualifiers: Abdominal location: left lower quadrant Qualified Code(s): R10.32 - Left lower quadrant pain Status: Acute Plan EGD and colonoscopy for abdominal pain. Time-Based Coding :: [TOTAL MINUTES] spent with patient and on the chart (including review of chart, obtaining history, exam, reviewing outside data, placing orders, documenting exam and treatment plan, and counseling patient) on [DATE]. 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
--- NOTE | 2025-03-19 12:10 | P.HP_ITS ---
History of Present Illness History of Present Illness Chief complaint: Esophagogastroduodenoscopy/Colonoscopy Narrative: Gricel is a 44-year-old woman presents with primarily left lower abdominal pain over the past months. She was seen in the ER on [address] and ultrasound showed a large cystic mass involving the right ovary. She was referred to Dr. العراقي who felt she should have endoscopy first. [facility] Medical History (Updated 03/19/25 @ 11:40 by David Manzano MD) Depression Anxiety Shoulder pain Carpal tunnel syndrome Chicken pox Painful menstrual periods Ovarian cyst Heavy menstrual period Surgical History Anesthesia History of cholecystectomy (~2017) Status post arthroscopy (~1995) Status post tubal ligation Status post dilation and curettage Status post delivery (~2014) Status post delivery (~2008) Status post delivery (~2005) Status post delivery (~2003) Family History Father Age: 66 Heart disease High cholesterol Hypertension Mother Age: 64 Lupus Grandmother High cholesterol Hypertension Sister Lupus Sister Lupus Social History (System 11/10/17 @ 14:59 by Leda Little) household members: spouse and children Smoking Status: Never smoker alcohol intake: never substance use type: does not use Meds Home Medications and Allergies Home Medications ?Medication ?Instructions ?Recorded ?Confirmed ?Type progesterone micronized 200 mg 200 mg PO DAILY #90 cap s 06/19/21 03/12/25 Rx capsule Held on 03/14/25. Instructions: medication change norethindrone (contraceptive) 0.35 0.35 mg PO DAILY #8 4 tabs 03/14/25 03/14/25 Rx mg tablet (Casi) Allergies Allergy/AdvReac Type Severity Reaction Status Date / Time No Known Drug Allergies Allergy Verified 03/19/25 10:51 Exam Vital Signs (past 8 hours): - 03/19/25 11:00 Temperature 97.6 F Pulse Rate 77 Respiratory Rate 16 Blood Pressure 132/88 Pulse Oximetry 97 Oxygen Delivery Method Room Air Oxygen Delivery Method Room Air Assessment & Plan Assessment and plan (1) Abdominal pain: Qualifiers: Abdominal location: left lower quadrant Qualified Code(s): R10.32 - Left lower quadrant pain Status: Acute Plan EGD and colonoscopy Time-Based Coding :: [TOTAL MINUTES] spent with patient and on the chart (including review of chart, obtaining history, exam, reviewing outside data, placing orders, documenting exam and treatment plan, and counseling patient) on [DATE]. PROFEE Collaborative Physician Document charge(s): No
[2025-03-19 12:11] VITALS: BP 127/68; PULSE 91; RESP 16; TEMP 36.6; O2SAT 95
--- NOTE | 2025-03-19 12:11 | PM.OP.EC ---
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 A bite blocked was placed and monitors were attached to the patient. The patient was positioned in the left lateral decubitus position. Sedation was administered. Once the patient was sedated the endoscope was inserted through the bite block and passed through the esophagus and stomach and into the duodenum. No abnormalities were seen. Biopsies were taken from the duodenal mucosa with cold forceps. We then withdrew the scope into the stomach. No obvious abnormalities were seen. Random biopsies were taken from the antrum with cold forceps. The endoscope was retroflexed and no hiatal hernia was seen. The endoscope was straightned and withdrawn into the esophagus. No abnormalities were seen. EGD findings: Grossly normal EGD Next we repositioned the patient for a colonoscopy. A digital rectal exam was performed and was normal. The colonoscope was inserted and advanced to the cecum. The appendiceal orifice was identified and photographed. The scope was slowly withdrawn over greater than 6 minutes. A 2 mm polyp was found in the cecum and removed with a cold snare. The rest of the colon was normal. The scope was retroflexed in the rectum and no abnormalities were seen. Colonoscopy findings: 2 mm cecal polyp Scope withdrawal time: 9 minutes Sedation minutes: 18 minutes Estimated Blood Loss: 3 Complications: none Post-procedure Disposition: PACU
[2025-03-19 12:15] VITALS: BP 129/74; PULSE 80; RESP 16; O2SAT 95
[2025-03-19 12:20] VITALS: BP 121/71; PULSE 78; RESP 16; O2SAT 99
[2025-03-19 12:25] VITALS: BP 122/73; PULSE 80; RESP 16; O2SAT 98
[2025-03-19 12:35] VITALS: BP 120/62; PULSE 68; RESP 16; O2SAT 98
== END 2025-03-19 12:44 | disposition home or self-care (01) ==
PROVIDERS: PCP Family Medicine; Referring Provider Family Medicine; Visit Provider Surgery
PROC: 0DJ08ZZ Inspection of Upper Intestinal Tract, Via Natural or Artificial Opening Endoscopic (ICD-10-PCS; CPT 45385; principal; 2025-03-19 11:30)
PROC: 0DJD8ZZ Inspection of Lower Intestinal Tract, Via Natural or Artificial Opening Endoscopic (ICD-10-PCS; CPT 45378; 2025-03-19 11:30)
DX: K63.5 Polyp of colon (principal); K29.50 Unspecified chronic gastritis without bleeding; R10.32 Left lower quadrant pain; N83.201 Unspecified ovarian cyst, right side
CPT/HCPCS: 45385; 43239; J2704; J7120

== ENCOUNTER → 2025-04-03 09:53 | Outpatient (CLI) | payer OTHER, SELFPAY ==
[2017-11-11 13:25] VITALS: BMI 40.2
[2025-04-04 14:36] LABS: Trichomoas vaginalis Negative (Negative)
== END ==
PROVIDERS: PCP Family Medicine; Visit Provider Obstetrics & Gynecology
DX: R10.20 Pelvic and perineal pain unspecified side (principal)
CPT/HCPCS: 81514

== ENCOUNTER → 2025-05-06 10:22 | Outpatient (CLI) | payer OTHER, SELFPAY ==
[2017-11-11 13:25] VITALS: BMI 40.2
--- NOTE | 2025-05-06 10:23 | DI.US.S_ITS ---
PROCEDURE: US PELVIC COMPLETE INDICATIONS: FOLLOW-UP RT ADNEXAL CYST TECHNIQUE: Real-time scanning was performed of the pelvic organs, with image documentation. Additional endovaginal scanning was necessary due to incomplete visualization of the adnexal and endometrial structures by transabdominal scanning. COMPARISON: Merged With [facility], US, US PELVIC COMPLETE, 03/05/2025, 18:30. Merged With [facility], CT, CT ABDOMEN PELVIS W CON, 03/05/2025, 19:38. FINDINGS: Uterus: 8.1 x 4.2 x 6.3 cm. Endometrium measures 5-6 mm. Previously identified fibroid not well visualized today. Ovaries: Enlarged right ovary with a midline cystic lesion measuring 6 x 5 cm better seen on transabdominal imaging. Previous measurement was 8 x 7.7 cm. Left ovary was not seen. Other: No pathologic free abdominal or pelvic fluid. IMPRESSION: Enlarged right ovary with a midline cystic lesion again seen measuring 6 x 5 cm, slightly decreased in size. Continued imaging follow-up with ultrasound or MRI recommended if no intervention is planned. Dictated by: Cameron Smith M.D. on 05/06/2025 at 11:01 Approved by: Cameron Smith M.D. on 05/06/2025 at 11:04
== END ==
LOC: US 10:23
PROVIDERS: PCP Family Medicine; Referring Provider Nurse Practitioner Adult Health; Visit Provider Nurse Practitioner Adult Health
DX: N92.0 Excessive and frequent menstruation with regular cycle (principal); N94.6 Dysmenorrhea, unspecified; N83.201 Unspecified ovarian cyst, right side; R10.32 Left lower quadrant pain
CPT/HCPCS: 64484; 76830; 76856